=== PATIENT | male | born 1985 | race African-American/Black ===

== ENCOUNTER 2019-03-23 15:23 | Emergency (ER) | payer OTHER ==
[~2019-03-23] VITALS: Ht 188 cm; Wt 102.1 kg
[~2019-03-23 15:23] MED LIST: ALBUTEROL2.5 MG/31 INH; APAP/CODEINE ELI5 M1 OR; DAY TIME LIQUI1 EAC1 PO; DELTASONE20 MG PO; DOXYCYCLINE 10100 MG PO; HYDROCODONE-APA1 TA1 PO; IBUPROFEN 200200 M1 PO; NEBULIZER MISCELL; NOHOMEMEDICATIONS; ONDANSETRON HCL4 M2 PO; PHENERGAN 25 MG25 M1 PO; PROMETH-CODEIN 65 ML PO; VENTOLIN HFA 1818 GM INH; ZANTAC 150MG T150 M1 PO; ZOFRAN 4 MG ORAL4 M1 DIS
[2019-03-23 16:55] VITALS: BP 142/97
== END 2019-03-23 16:58 | disposition home or self-care (01) ==
LOC: ER 15:23
DX: R20.2 Paresthesia of skin (principal); J45.909 Unspecified asthma, uncomplicated

== ENCOUNTER 2019-10-19 09:00 | Emergency (ER) | payer OTHER ==
[~2019-10-19] VITALS: Ht 188 cm; Wt 102.1 kg
[2019-10-19] MEDS ORDERED: NAPROSYN500 MG PO (11:49)
[2019-10-19] MEDS ORDERED: NORFLEX100 MG PO (11:49)
[2019-10-19 12:34] VITALS: BP 132/84
== END 2019-10-19 12:36 | disposition home or self-care (01) ==
LOC: ER 09:00
DX: S16.1XXA Strain of muscle, fascia and tendon at neck level, initial encounter (principal); S29.012A Strain of muscle and tendon of back wall of thorax, initial encounter; J45.909 Unspecified asthma, uncomplicated; V89.2XXA Person injured in unspecified motor-vehicle accident, traffic, initial encounter; Y93.89 Activity, other specified; Y92.488 Other paved roadways as the place of occurrence of the external cause; Y99.8 Other external cause status